=== PATIENT | female | born 1965 | race African-American/Black ===

== ENCOUNTER 2021-11-09 00:13 | Emergency (ER) | payer MEDICARE, OTHER ==
[~2021-11-09] VITALS: Ht 162.6 cm; Wt 65.9 kg
[~2021-11-09 00:13] MED LIST: DOCU-350 PO; DULO30CA89 PO; FOLI-130 PO; GABA-1201 PO; GABA-533 PO; LISI-892 PO; LORA10TA7 PO; MULT-1203 PO; OMEP10 PO
[2021-11-09] MEDS ORDERED: ONDANSETRON HCL 4 MG/2 ML VIAL IM ONE (01:00)
[2021-11-09] MEDS ORDERED: HYDROmorphone 2 MG/ML VIAL IM ONE (01:00)
[2021-11-09 01:39] LABS: BASOPHILS % (AUTO) 0.9 % (0.0-2.0); EOSINOPHILS % (AUTO) 12.5 % (1.0-6.0); HEMATOCRIT 39.1 % (36-46); HEMOGLOBIN 12.9 g/dL (12.0-16.0); LYMPHOCYTES # (AUTO) 2.4 K/uL (1.0-4.8); LYMPHOCYTES % (AUTO) 22.5 % (22.0-44.0); MEAN CORPUSCULAR HEMOGLOBIN 29.6 pg (26.0-34.0); MEAN CORPUSCULAR HGB CONC 32.9 G/dL (31.0-37.0); MEAN CORPUSCULAR VOLUME 90 fL (80-100); MONOCYTES # (AUTO) 0.7 K/uL (0.1-1.0); MONOCYTES % (AUTO) 6.9 % (2.0-9.0); NEUTROPHILS # (AUTO) 6.1 K/uL (1.8-7.7); NEUTROPHILS % (AUTO) 57.2 % (40.0-70.0); PLATELET COUNT (AUTO) 163 K/uL (150-450); RED BLOOD CELL COUNT(AUTO) 4.35 MIL/uL (4.00-5.20); RED CELL DISTRIBUTION WIDTH 14.4 % (11.5-14.5)
[2021-11-09 01:48] LABS: CALCIUM, TOTAL 9.4 mg/dL (8.8-10.5); CREATININE 1.25 mg/dL (0.60-1.30); POTASSIUM 3.9 mmol/L (3.5-5.1)
[2021-11-09 01:54] LABS: ALBUMIN 2.3 g/dL (3.4-5.0); BILIRUBIN,TOTAL 0.1 mg/dL (0.1-1.0); TOTAL PROTEIN, SERUM 6.1 g/dL (6.4-8.2)
[2021-11-09] MEDS ORDERED: HYDR25TA2 PO (02:08)
[2021-11-09] MEDS ORDERED: AMLO-258 PO (02:08)
[2021-11-09] MEDS ORDERED: POTA8TAB71 PO (02:08)
[2021-11-09] MEDS ORDERED: LOSA-381 PO (02:08)
[2021-11-09 02:13] VITALS: BP 168/94
== END 2021-11-09 02:20 | disposition home or self-care (01) ==
LOC: EMS 00:15
DX: R60.0 Localized edema (principal); I10 Essential (primary) hypertension; E78.00 Pure hypercholesterolemia, unspecified; F32.9 Major depressive disorder, single episode, unspecified; Z88.8 Allergy status to other drugs, medicaments and biological substances; Z79.899 Other long term (current) drug therapy
CPT/HCPCS: 36415; 80053; 84484; 85025; 93005; 96372; 99284; J1170; J2405

== ENCOUNTER 2021-11-16 08:28 | Emergency (ER) | payer OTHER ==
[~2021-11-16] VITALS: Ht 162.6 cm; Wt 63.6 kg
[~2021-11-16 08:28] MED LIST changes: +AMLO-258 PO; +HYDR25TA2 PO; +LOSA-381 PO; +POTA8TAB71 PO
[2021-11-16 08:50] LABS: COVID AG,FIA SOURCE NASAL SWAB
[2021-11-16 10:15] VITALS: BP 128/52
[2021-11-16] MEDS ORDERED: AMOX1TAB16 PO (10:15)
== END 2021-11-16 10:23 | disposition home or self-care (01) ==
LOC: EMS 08:42
DX: J01.90 Acute sinusitis, unspecified (principal); I10 Essential (primary) hypertension; E78.00 Pure hypercholesterolemia, unspecified; F32.9 Major depressive disorder, single episode, unspecified; Z88.8 Allergy status to other drugs, medicaments and biological substances; Z79.899 Other long term (current) drug therapy; Z20.822 Contact with and (suspected) exposure to COVID-19
CPT/HCPCS: 99283

== ENCOUNTER 2021-12-05 06:51 | Emergency (ER) | payer OTHER ==
[~2021-12-05] VITALS: Ht 162.6 cm; Wt 63.6 kg
[~2021-12-05 06:51] MED LIST changes: +AMOX1TAB16 PO
[2021-12-05 07:02] LABS: COVID AG,FIA SOURCE NASAL SWAB
[2021-12-05] MEDS ORDERED: ALBUTEROL SULFATE 5 MG/ML 20 ML NEB SOLN [BULK] NEB ONE (08:00)
[2021-12-05 08:20] LABS: BASOPHILS % (AUTO) 0.8 % (0.0-2.0); HEMATOCRIT 41.4 % (36-46); HEMOGLOBIN 13.7 g/dL (12.0-16.0); LYMPHOCYTES # (AUTO) 1.5 K/uL (1.0-4.8); LYMPHOCYTES % (AUTO) 13.6 % (22.0-44.0); MEAN CORPUSCULAR HEMOGLOBIN 29.3 pg (26.0-34.0); MEAN CORPUSCULAR HGB CONC 33.2 G/dL (31.0-37.0); MEAN CORPUSCULAR VOLUME 88 fL (80-100); MONOCYTES # (AUTO) 0.6 K/uL (0.1-1.0); MONOCYTES % (AUTO) 5.3 % (2.0-9.0); NEUTROPHILS # (AUTO) 5.9 K/uL (1.8-7.7); NEUTROPHILS % (AUTO) 51.6 % (40.0-70.0); PLATELET COUNT (AUTO) 227 K/uL (150-450); RED CELL DISTRIBUTION WIDTH 14.1 % (11.5-14.5)
[2021-12-05] MEDS ORDERED: 0.9% SODIUM CHLORIDE 5 ML NEB SOLUTION NEB ONE (08:21)
[2021-12-05 08:22] LABS: EOSINOPHILS % (AUTO) 28.7 % (1.0-6.0)
[2021-12-05 08:27] LABS: CALCIUM, TOTAL 9.3 mg/dL (8.8-10.5); CREATININE 1.59 mg/dL (0.60-1.30); POTASSIUM 3.9 mmol/L (3.5-5.1)
[2021-12-05 08:32] LABS: ALBUMIN 2.6 g/dL (3.4-5.0); BILIRUBIN,TOTAL 0.3 mg/dL (0.1-1.0)
[2021-12-05] MEDS ORDERED: MethylPREDNISolone SOD SUCC 125 MG/2 ML VIAL IVP ONE (09:00)
[2021-12-05] MEDS ORDERED: PRED20TA3 PO (09:54)
[2021-12-05 10:27] VITALS: BP 148/76
== END 2021-12-05 10:28 | disposition home or self-care (01) ==
LOC: EMS 07:01
DX: J44.1 Chronic obstructive pulmonary disease with (acute) exacerbation (principal); F32.9 Major depressive disorder, single episode, unspecified; E78.00 Pure hypercholesterolemia, unspecified; I10 Essential (primary) hypertension; Z20.822 Contact with and (suspected) exposure to COVID-19; Z90.710 Acquired absence of both cervix and uterus; Z88.8 Allergy status to other drugs, medicaments and biological substances
CPT/HCPCS: 36415; 71045; 80053; 83880; 84484; 85025; 87426; 93005; 94640; 96374; 99285; C9803; J2930; J7611

== ENCOUNTER 2022-01-13 15:47 | Emergency (ER) | payer OTHER ==
[~2022-01-13] VITALS: Ht 162.6 cm; Wt 63.6 kg
[~2022-01-13 15:47] MED LIST changes: -DOCU-350 PO; +DOCU250C99 PO; +DULO-114 PO; -DULO30CA89 PO; +PRED20TA3 PO
[2022-01-13 16:34] LABS: COVID AG,FIA SOURCE NASOPHARYNGEAL
[2022-01-13] MEDS ORDERED: ACETAMINOPHEN 500 MG TABLET PO ONE (17:00)
[2022-01-13 17:34] LABS: INFLUENZA TYPE B NEGATIVE FOR TYPE B (NEGATIVE)
[2022-01-13 17:46] LABS: INFLUENZA TYPE A POSITIVE FOR TYPE A (NEGATIVE)
[2022-01-13 18:04] VITALS: BP 163/94
[2022-01-13] MEDS ORDERED: OSEL75 PO (18:04)
[2022-01-13] MEDS ORDERED: DOXY-354 PO (18:04)
== END 2022-01-13 18:25 | disposition home or self-care (01) ==
LOC: EMS 16:11
DX: J10.1 Influenza due to other identified influenza virus with other respiratory manifestations (principal); F32.A Depression, unspecified; E78.00 Pure hypercholesterolemia, unspecified; I10 Essential (primary) hypertension; M35.9 Systemic involvement of connective tissue, unspecified; Z90.710 Acquired absence of both cervix and uterus; Z98.890 Other specified postprocedural states; Z88.8 Allergy status to other drugs, medicaments and biological substances; Z20.822 Contact with and (suspected) exposure to COVID-19
CPT/HCPCS: 87804; 99283

== ENCOUNTER 2022-01-24 11:20 | Emergency (ER) | payer OTHER ==
[~2022-01-24] VITALS: Ht 162.6 cm; Wt 63.6 kg
[~2022-01-24 11:20] MED LIST changes: +DOCU-350 PO; -DOCU250C99 PO; +DOXY-354 PO; +OSEL75 PO
[2022-01-24 13:02] LABS: COVID AG,FIA SOURCE NASOPHARYNGEAL
[2022-01-24 13:06] LABS: BASOPHILS % (AUTO) 1.2 % (0.0-2.0); EOSINOPHILS % (AUTO) 24.2 % (1.0-6.0); HEMATOCRIT 40.9 % (36-46); HEMOGLOBIN 13.2 g/dL (12.0-16.0); LYMPHOCYTES # (AUTO) 2.1 K/uL (1.0-4.8); LYMPHOCYTES % (AUTO) 18.5 % (22.0-44.0); MEAN CORPUSCULAR HEMOGLOBIN 28.7 pg (26.0-34.0); MEAN CORPUSCULAR HGB CONC 32.4 G/dL (31.0-37.0); MEAN CORPUSCULAR VOLUME 89 fL (80-100); MONOCYTES # (AUTO) 0.7 K/uL (0.1-1.0); MONOCYTES % (AUTO) 5.9 % (2.0-9.0); NEUTROPHILS # (AUTO) 5.7 K/uL (1.8-7.7); NEUTROPHILS % (AUTO) 50.2 % (40.0-70.0); PLATELET COUNT (AUTO) 298 K/uL (150-450); RED BLOOD CELL COUNT(AUTO) 4.61 MIL/uL (4.00-5.20)
[2022-01-24] MEDS: SODIUM CHLORIDE 0.9% 1,000 ML IV ONE (13:16)
[2022-01-24] MEDS: OXYMETAZOLINE HCL 0.05% 15 ML NASAL SPRAY NASAL ONE (13:16)
[2022-01-24 13:29] LABS: INFLUENZA TYPE A NEGATIVE FOR TYPE A (NEGATIVE); INFLUENZA TYPE B NEGATIVE FOR TYPE B (NEGATIVE)
[2022-01-24 14:19] LABS: CALCIUM, TOTAL 9.3 mg/dL (8.8-10.5); CREATININE 1.32 mg/dL (0.60-1.30); POTASSIUM 4.6 mmol/L (3.5-5.1)
[2022-01-24 14:20] VITALS: BP 125/80
[2022-01-24 14:22] LABS: ALBUMIN 2.4 g/dL (3.4-5.0); BILIRUBIN,TOTAL 0.3 mg/dL (0.1-1.0); TOTAL PROTEIN, SERUM 6.6 g/dL (6.4-8.2)
[2022-01-24] MEDS ORDERED: FLUT16H NASAL (14:33)
== END 2022-01-24 14:48 | disposition home or self-care (01) ==
LOC: EMS 11:20
DX: J01.90 Acute sinusitis, unspecified (principal); F32.A Depression, unspecified; E78.00 Pure hypercholesterolemia, unspecified; I10 Essential (primary) hypertension; D89.89 Other specified disorders involving the immune mechanism, not elsewhere classified; Z90.710 Acquired absence of both cervix and uterus; Z98.890 Other specified postprocedural states; Z88.8 Allergy status to other drugs, medicaments and biological substances; Z20.822 Contact with and (suspected) exposure to COVID-19
CPT/HCPCS: 36415; 71045; 80053; 85025; 87426; 87804; 96360; 99284; J7030

== ENCOUNTER 2022-02-06 12:10 | Emergency (ER) | payer OTHER ==
[~2022-02-06] VITALS: Ht 162.6 cm; Wt 61.0 kg
[~2022-02-06 12:10] MED LIST changes: +FLUT16H NASAL
[2022-02-06] MEDS ORDERED: PredniSONE 20 MG TABLET PO ONE (15:45)
[2022-02-06] MEDS ORDERED: ALBUTEROL SULFATE 2.5 MG/0.5 ML NEB SOLUTION NEB ONE (15:45)
[2022-02-06] MEDS ORDERED: IPRATROPIUM BROMIDE 0.5 MG/2.5 ML NEB SOLUTION NEB ONE (15:45)
[2022-02-06 17:17] VITALS: BP 177/100
[2022-02-06] MEDS ORDERED: AZIT250T9 PO (17:26)
[2022-02-06] MEDS ORDERED: PRED-554 PO (17:26)
== END 2022-02-06 18:09 | disposition home or self-care (01) ==
LOC: EMS 12:11
DX: J45.909 Unspecified asthma, uncomplicated (principal); I10 Essential (primary) hypertension; K21.9 Gastro-esophageal reflux disease without esophagitis; Z88.8 Allergy status to other drugs, medicaments and biological substances; Z79.899 Other long term (current) drug therapy
CPT/HCPCS: 71046; 94640; 99283; J7512; J7613

== ENCOUNTER 2022-03-04 08:28 | Emergency (ER) | payer OTHER ==
[~2022-03-04] VITALS: Ht 160 cm; Wt 70.0 kg
[~2022-03-04 08:28] MED LIST changes: +AZIT250T9 PO; +HYDR-4870 PO; -HYDR25TA2 PO; +PRED-554 PO
[2022-03-04 08:29] VITALS: BP 115/75
[2022-03-04 08:58] LABS: COVID AG,FIA SOURCE NASOPHARYNGEAL
[2022-03-04] MEDS ORDERED: NIRM1TAB5 ×2 (09:25→11:08)
[2022-03-04 09:49] LABS: INFLUENZA TYPE A NEGATIVE FOR TYPE A (NEGATIVE); INFLUENZA TYPE B NEGATIVE FOR TYPE B (NEGATIVE)
== END 2022-03-04 10:05 | disposition home or self-care (01) ==
LOC: EMS 08:28
DX: U07.1 COVID-19 (principal); K21.9 Gastro-esophageal reflux disease without esophagitis; I10 Essential (primary) hypertension; Z88.9 Allergy status to unspecified drugs, medicaments and biological substances; Z88.8 Allergy status to other drugs, medicaments and biological substances; Z90.49 Acquired absence of other specified parts of digestive tract
CPT/HCPCS: 87804; 99283

== ENCOUNTER 2022-03-14 11:52 | Emergency (ER) | payer OTHER ==
[~2022-03-14] VITALS: Ht 162.6 cm; Wt 59.1 kg
[~2022-03-14 11:52] MED LIST changes: +NIRM1TAB5
[2022-03-14 12:22] LABS: COVID AG,FIA SOURCE NASAL SWAB
[2022-03-14 12:55] LABS: INFLUENZA TYPE A NEGATIVE FOR TYPE A (NEGATIVE); INFLUENZA TYPE B NEGATIVE FOR TYPE B (NEGATIVE)
[2022-03-14 13:55] VITALS: BP 132/88
[2022-03-14] MEDS ORDERED: BENZ-70 PO (15:32)
== END 2022-03-14 15:46 | disposition home or self-care (01) ==
LOC: EMS 11:52
DX: R05.9 Cough, unspecified (principal); I10 Essential (primary) hypertension; K21.9 Gastro-esophageal reflux disease without esophagitis; J44.9 Chronic obstructive pulmonary disease, unspecified; Z88.8 Allergy status to other drugs, medicaments and biological substances; Z79.899 Other long term (current) drug therapy; Z20.822 Contact with and (suspected) exposure to COVID-19
CPT/HCPCS: 71046; 87804; 99284

== ENCOUNTER 2022-03-23 09:05 | Emergency (ER) | payer OTHER ==
[~2022-03-23] VITALS: Ht 162.6 cm; Wt 61.4 kg
[~2022-03-23 09:05] MED LIST changes: +BENZ-70 PO; -HYDR-4870 PO; +HYDR25TA2 PO
[2022-03-23] MEDS ORDERED: ACETAMINOPHEN 500 MG TABLET PO ONE (09:30)
[2022-03-23] MEDS ORDERED: IPRATROPIUM BROMIDE 0.5 MG/2.5 ML NEB SOLUTION NEB ONE (09:30)
[2022-03-23] MEDS ORDERED: PredniSONE 20 MG TABLET PO ONE (09:30)
[2022-03-23] MEDS ORDERED: ALBUTEROL SULFATE 2.5 MG/0.5 ML NEB SOLUTION NEB ONE (09:30)
[2022-03-23] MEDS ORDERED: KETOROLAC TROMETHAMINE 30 MG/ML VIAL IM ONE (09:30)
[2022-03-23 09:38] LABS: BASOPHILS % (AUTO) 0.8 % (0.0-2.0); HEMATOCRIT 39.6 % (36-46); HEMOGLOBIN 13.1 g/dL (12.0-16.0); LYMPHOCYTES # (AUTO) 1.4 K/uL (1.0-4.8); MEAN CORPUSCULAR HEMOGLOBIN 29.3 pg (26.0-34.0); MEAN CORPUSCULAR HGB CONC 33.1 G/dL (31.0-37.0); MEAN CORPUSCULAR VOLUME 89 fL (80-100); MONOCYTES # (AUTO) 0.5 K/uL (0.1-1.0); MONOCYTES % (AUTO) 5.1 % (2.0-9.0); NEUTROPHILS # (AUTO) 4.7 K/uL (1.8-7.7); NEUTROPHILS % (AUTO) 50.8 % (40.0-70.0); PLATELET COUNT (AUTO) 219 K/uL (150-450); RED BLOOD CELL COUNT(AUTO) 4.46 MIL/uL (4.00-5.20); RED CELL DISTRIBUTION WIDTH 14.2 % (11.5-14.5)
[2022-03-23 09:43] LABS: EOSINOPHILS % (AUTO) 28.3 % (1.0-6.0)
[2022-03-23 09:52] LABS: COVID AG,FIA SOURCE NASOPHARYNGEAL
[2022-03-23 09:52] LABS: CALCIUM, TOTAL 9.6 mg/dL (8.8-10.5); CREATININE 1.18 mg/dL (0.60-1.30); POTASSIUM 4.3 mmol/L (3.5-5.1)
[2022-03-23 10:00] LABS: ALBUMIN 2.9 g/dL (3.4-5.0); BILIRUBIN,TOTAL 0.3 mg/dL (0.1-1.0); TOTAL PROTEIN, SERUM 6.6 g/dL (6.4-8.2)
[2022-03-23 10:20] VITALS: BP 146/101
[2022-03-23 10:23] LABS: INFLUENZA TYPE A NEGATIVE FOR TYPE A (NEGATIVE); INFLUENZA TYPE B NEGATIVE FOR TYPE B (NEGATIVE)
[2022-03-23] MEDS ORDERED: PRED-554 PO (10:49)
== END 2022-03-23 11:07 | disposition home or self-care (01) ==
LOC: EMS 09:07
DX: R05.9 Cough, unspecified (principal); Z20.822 Contact with and (suspected) exposure to COVID-19; K21.9 Gastro-esophageal reflux disease without esophagitis; I10 Essential (primary) hypertension; J44.9 Chronic obstructive pulmonary disease, unspecified; J45.901 Unspecified asthma with (acute) exacerbation; M79.661 Pain in right lower leg; Z88.9 Allergy status to unspecified drugs, medicaments and biological substances; Z88.8 Allergy status to other drugs, medicaments and biological substances
CPT/HCPCS: 99284; 71045; 87426; 80053; 83880; 84484; 84702; 85025; 87804; 36415; 94640; 96372; J1885; J7512; J7613

== ENCOUNTER 2022-05-17 07:42 | Emergency (ER) | payer OTHER ==
[~2022-05-17] VITALS: Ht 162.6 cm; Wt 59.1 kg
[2022-05-17] MEDS ORDERED: HYDR10TA31 PO (07:50)
[2022-05-17] MEDS ORDERED: NIFE10CA50 PO (07:50)
[2022-05-17] MEDS ORDERED: BUDE10.22 IH (07:51)
[2022-05-17] MEDS ORDERED: ALBU8HFA IH (07:51)
[2022-05-17 08:22] LABS: COVID AG,FIA SOURCE NASAL SWAB
[2022-05-17 08:26] LABS: HEMATOCRIT 38.8 % (36-46); HEMOGLOBIN 12.9 g/dL (12.0-16.0); MEAN CORPUSCULAR HEMOGLOBIN 29.8 pg (26.0-34.0); MEAN CORPUSCULAR HGB CONC 33.3 G/dL (31.0-37.0); MEAN CORPUSCULAR VOLUME 89 fL (80-100); PLATELET COUNT (AUTO) 281 K/uL (150-450); RED BLOOD CELL COUNT(AUTO) 4.34 MIL/uL (4.00-5.20); RED CELL DISTRIBUTION WIDTH 15.2 % (11.5-14.5)
[2022-05-17] MEDS ORDERED: ACETAMINOPHEN 500 MG TABLET PO ONE (08:30)
[2022-05-17] MEDS ORDERED: PredniSONE 20 MG TABLET PO ONE (08:30)
[2022-05-17] MEDS ORDERED: GuaiFENesin/D-METHORPHAN [SUGAR-FREE] 200-20MG/10 ML SYRUP UDCUP PO ONE (08:30)
[2022-05-17 08:37] LABS: CALCIUM, TOTAL 9.2 mg/dL (8.8-10.5); CREATININE 1.48 mg/dL (0.60-1.30); POTASSIUM 3.7 mmol/L (3.5-5.1)
[2022-05-17 08:42] LABS: INFLUENZA TYPE A NEGATIVE FOR TYPE A (NEGATIVE); INFLUENZA TYPE B NEGATIVE FOR TYPE B (NEGATIVE)
[2022-05-17 08:43] LABS: ALBUMIN 2.7 g/dL (3.4-5.0); BILIRUBIN,TOTAL 0.2 mg/dL (0.1-1.0); TOTAL PROTEIN, SERUM 6.5 g/dL (6.4-8.2)
[2022-05-17 08:56] LABS: BAND NEUTROPHILS % (MANUAL) 2 % (0-5); BASOPHILS % (MANUAL) 1 % (0-2); EOSINOPHILS % (MANUAL) 31 % (1-6); LYMPHOCYTES % (MANUAL) 11 % (22-44); MONOCYTES % (MANUAL) 2 % (2-9); SEGMENTED NEUTROPHILS % 53 % (40-70)
[2022-05-17] MEDS ORDERED: RIZA10TA98 PO (10:12)
[2022-05-17] MEDS ORDERED: DIPH25TA45 PO (10:12)
[2022-05-17] MEDS ORDERED: POTA8TAB71 PO (10:12)
[2022-05-17] MEDS ORDERED: PRED-554 PO (10:12)
[2022-05-17] MEDS ORDERED: ACET-66 PO (10:12)
[2022-05-17] MEDS ORDERED: AmLODIPine BESYLATE 5 MG TABLET PO ONE (10:45)
[2022-05-17] MEDS ORDERED: DiphenhydrAMINE HCL 25 MG/10 ML SOLUTION UDCUP PO ONE (10:45)
[2022-05-17 11:24] VITALS: BP 186/99
== END 2022-05-17 12:07 | disposition home or self-care (01) ==
LOC: EMS 07:44
DX: G43.909 Migraine, unspecified, not intractable, without status migrainosus (principal); J06.9 Acute upper respiratory infection, unspecified; J44.1 Chronic obstructive pulmonary disease with (acute) exacerbation; I10 Essential (primary) hypertension; Z90.49 Acquired absence of other specified parts of digestive tract; Z20.822 Contact with and (suspected) exposure to COVID-19
CPT/HCPCS: 99284; 87426; 80053; 84484; 85025; 87804; 36415; J7512

== ENCOUNTER 2022-06-01 16:07 | Emergency (ER) | payer OTHER ==
[~2022-06-01] VITALS: Ht 160 cm; Wt 63.6 kg
[~2022-06-01 16:07] MED LIST changes: +ACET-66 PO; +ALBU8HFA IH; -AMLO-258 PO; -AMOX1TAB16 PO; -AZIT250T9 PO; -BENZ-70 PO; +BUDE10.22 IH; +DIPH25TA45 PO; -DOCU-350 PO; -DOXY-354 PO; -DULO-114 PO; -FOLI-130 PO; -GABA-1201 PO; -GABA-533 PO; +HYDR10TA31 PO; -LISI-892 PO; -MULT-1203 PO; +NIFE10CA50 PO; -NIRM1TAB5; -OMEP10 PO; -OSEL75 PO; -PRED20TA3 PO; +RIZA10TA98 PO
[2022-06-01] MEDS ORDERED: IBUP-2070 PO (18:13)
[2022-06-01] MEDS ORDERED: CYCL-448 PO (18:13)
[2022-06-01] MEDS ORDERED: CYCLOBENZAPRINE HCL 10 MG TABLET PO ONE (18:15)
[2022-06-01] MEDS ORDERED: KETOROLAC TROMETHAMINE 60 MG/2 ML VIAL IM ONE (18:15)
[2022-06-01 18:25] VITALS: BP 139/85
== END 2022-06-01 18:54 | disposition home or self-care (01) ==
LOC: EMS 16:07
DX: M54.41 Lumbago with sciatica, right side (principal); J45.909 Unspecified asthma, uncomplicated; J44.9 Chronic obstructive pulmonary disease, unspecified; I10 Essential (primary) hypertension; Z90.49 Acquired absence of other specified parts of digestive tract; Z98.890 Other specified postprocedural states; Z88.8 Allergy status to other drugs, medicaments and biological substances
CPT/HCPCS: 99283; 96372; J1885

== ENCOUNTER 2022-06-17 15:26 | Emergency (ER) | payer OTHER ==
[~2022-06-17] VITALS: Ht 162.6 cm; Wt 63.2 kg
[~2022-06-17 15:26] MED LIST changes: +CYCL-448 PO; -DIPH25TA45 PO; +IBUP-2070 PO
[2022-06-17 15:54] VITALS: BP 142/88
[2022-06-18] MEDS ORDERED: NIFE-79 PO (11:50)
[2022-06-18] MEDS ORDERED: CETI10TA58 PO (11:51)
[2022-06-18] MEDS ORDERED: TRAM50TA2 PO (13:34)
== END 2022-06-17 16:37 | disposition left against medical advice (07) ==
LOC: EMS 15:28
DX: M79.604 Pain in right leg (principal); Z53.21 Procedure and treatment not carried out due to patient leaving prior to being seen by health care provider

== ENCOUNTER 2022-06-18 09:29 | Emergency (ER) | payer OTHER ==
[~2022-06-18] VITALS: Ht 160 cm; Wt 63.6 kg
[2022-06-18 09:38] VITALS: BP 128/82
[2022-06-18] MEDS ORDERED: ACETAMINOPHEN 325 MG TABLET PO ONE (10:15)
[2022-06-18] MEDS ORDERED: NIFE-79 PO (11:50)
[2022-06-18] MEDS ORDERED: CETI10TA58 PO (11:51)
[2022-06-18] MEDS ORDERED: LIDOCAINE 5% TRANSDERMAL PATCH TD ONE (12:30)
[2022-06-18] MEDS ORDERED: KETOROLAC TROMETHAMINE 30 MG/ML VIAL IM ONE (12:30)
[2022-06-18] MEDS ORDERED: TRAM50TA2 PO (13:34)
== END 2022-06-18 13:58 | disposition home or self-care (01) ==
LOC: EMS 09:36
DX: G89.29 Other chronic pain (principal); M54.50 Low back pain, unspecified; J44.9 Chronic obstructive pulmonary disease, unspecified; I10 Essential (primary) hypertension; Z90.49 Acquired absence of other specified parts of digestive tract; Z98.890 Other specified postprocedural states; Z88.8 Allergy status to other drugs, medicaments and biological substances
CPT/HCPCS: 99283; 96372; J1885

== ENCOUNTER 2022-07-02 13:21 | Emergency (ER) | payer OTHER ==
[~2022-07-02] VITALS: Ht 162.6 cm; Wt 59.1 kg
[~2022-07-02 13:21] MED LIST changes: +CETI10TA58 PO; -LORA10TA7 PO; +NIFE-79 PO; -NIFE10CA50 PO; -PRED-554 PO; +TRAM50TA2 PO
[2022-07-02] MEDS ORDERED: PredniSONE 20 MG TABLET PO ONE ×2 (16:30→18:00)
[2022-07-02] MEDS ORDERED: ALBUTEROL SULFATE 2.5 MG/0.5 ML NEB SOLUTION NEB ONE (16:30)
[2022-07-02] MEDS ORDERED: IPRATROPIUM BROMIDE 0.5 MG/2.5 ML NEB SOLUTION NEB ONE (16:30)
[2022-07-02 16:54] LABS: HEMATOCRIT 37.4 % (36-46); MEAN CORPUSCULAR HEMOGLOBIN 29.6 pg (26.0-34.0); MEAN CORPUSCULAR HGB CONC 32.2 G/dL (31.0-37.0); MEAN CORPUSCULAR VOLUME 92 fL (80-100); PLATELET COUNT (AUTO) 231 K/uL (150-450); RED BLOOD CELL COUNT(AUTO) 4.07 MIL/uL (4.00-5.20); RED CELL DISTRIBUTION WIDTH 15.2 % (11.5-14.5)
[2022-07-02 17:25] LABS: BAND NEUTROPHILS % (MANUAL) 0 % (0-5)
[2022-07-02 17:28] LABS: EOSINOPHILS % (MANUAL) 24 % (1-6); LYMPHOCYTES % (MANUAL) 20 % (22-44); MONOCYTES % (MANUAL) 2 % (2-9); SEGMENTED NEUTROPHILS % 54 % (40-70)
[2022-07-02 17:31] LABS: CALCIUM, TOTAL 9.6 mg/dL (8.8-10.5); CREATININE 2.26 mg/dL (0.60-1.30); POTASSIUM 4.8 mmol/L (3.5-5.1)
[2022-07-02 17:38] LABS: ALBUMIN 2.5 g/dL (3.4-5.0); BILIRUBIN,TOTAL 0.4 mg/dL (0.1-1.0)
[2022-07-02 17:49] LABS: TOTAL PROTEIN, SERUM 7.2 g/dL (6.4-8.2)
[2022-07-02] MEDS ORDERED: CefTRIAXone 1 GM/DEXTROSE 50 ML IV ONE (18:00)
[2022-07-02] MEDS ORDERED: AZITHROMYCIN 500 MG TABLET PO ONE (18:00)
[2022-07-02] MEDS ORDERED: CefTRIAXone SODIUM 1 GM/VIAL IM ONE ×2 (18:15→18:30)
[2022-07-02] MEDS ORDERED: LIDOCAINE/PF 1% 2 ML VIAL IM ONE ×2 (18:15→18:30)
[2022-07-02] MEDS ORDERED: ACYC-138 PO (18:56)
[2022-07-02] MEDS ORDERED: AZIT250T9 PO (18:56)
[2022-07-02] MEDS ORDERED: PRED-554 PO (18:56)
[2022-07-02 18:58] VITALS: BP 121/78
== END 2022-07-02 19:01 | disposition home or self-care (01) ==
LOC: EMS 13:24
DX: J18.9 Pneumonia, unspecified organism (principal); B00.9 Herpesviral infection, unspecified; N76.0 Acute vaginitis; I10 Essential (primary) hypertension; J44.9 Chronic obstructive pulmonary disease, unspecified; K21.9 Gastro-esophageal reflux disease without esophagitis; R06.02 Shortness of breath; Z88.5 Allergy status to narcotic agent
CPT/HCPCS: 99284; 71046; 80053; 85025; 36415; 94640; 96372; J0696; J3490; J7512; Q9967; J7613

== ENCOUNTER 2022-08-22 23:27 | Emergency (ER) | payer MEDICARE, OTHER ==
[~2022-08-22] VITALS: Ht 162.6 cm; Wt 61.3 kg
[~2022-08-22 23:27] MED LIST changes: +ACYC-138 PO; -FLUT16H NASAL; +FLUT16SP NASAL; +PRED-554 PO
[2022-08-23 01:55] VITALS: BP 145/71
== END 2022-08-23 01:56 | disposition home or self-care (01) ==
LOC: EMS 23:32
DX: S00.12XA Contusion of left eyelid and periocular area, initial encounter (principal); J45.909 Unspecified asthma, uncomplicated; J44.9 Chronic obstructive pulmonary disease, unspecified; B00.9 Herpesviral infection, unspecified; I12.9 Hypertensive chronic kidney disease with stage 1 through stage 4 chronic kidney disease, or unspecified chronic kidney disease; M79.89 Other specified soft tissue disorders; N18.9 Chronic kidney disease, unspecified; Z90.49 Acquired absence of other specified parts of digestive tract; Z98.890 Other specified postprocedural states; Z88.8 Allergy status to other drugs, medicaments and biological substances; W18.39XA Other fall on same level, initial encounter; Y93.89 Activity, other specified; Y92.89 Other specified places as the place of occurrence of the external cause; Y99.8 Other external cause status
CPT/HCPCS: 70450; 70486; 99284

== ENCOUNTER 2022-09-12 09:38 | Emergency (ER) | payer MEDICARE, MEDICAID ==
[~2022-09-12] VITALS: Ht 160 cm; Wt 56.8 kg
[~2022-09-12 09:38] MED LIST changes: +IBUP-1492 PO; -IBUP-2070 PO
[2022-09-12 10:02] LABS: COVID AG,FIA SOURCE NASAL SWAB
[2022-09-12 10:30] LABS: INFLUENZA TYPE A NEGATIVE FOR TYPE A (NEGATIVE); INFLUENZA TYPE B NEGATIVE FOR TYPE B (NEGATIVE)
[2022-09-12 11:50] LABS: APPEARANCE,URINE CLEAR (CLEAR); BILIRUBIN,URINE NEGATIVE (NEGATIVE); GLUCOSE, URINE (UA) NEGATIVE (NEGATIVE); KETONES,URINE NEGATIVE (NEGATIVE); LEUKOCYTE ESTERASE ,URINE NEGATIVE (NEGATIVE); NITRATE,URINE NEGATIVE (NEGATIVE); OCCULT BLOOD,URINE NEGATIVE (NEGATIVE); PH,URINE 6.5 (5.0-8.0); PROTEIN,URINE 100-200,SEE CONFIRM mg/dL (NEGATIVE); UROBILINOGEN,URINE <=1.0 mg/dL (<=1.0)
[2022-09-12 11:59] LABS: BACTERIA,URINE None Seen /HPF (None Seen); RBC,URINE None Seen /HPF (0-2); SULFOSALICYLIC ACID,URINE 2+ (Negative); WBC,URINE None Seen /HPF (0-5)
[2022-09-12] MEDS ORDERED: PRED-554 PO (12:47)
[2022-09-12] MEDS ORDERED: AZIT250T9 PO (12:48)
[2022-09-12 13:20] VITALS: BP 146/81
== END 2022-09-12 13:48 | disposition home or self-care (01) ==
LOC: EMS 09:45
DX: J45.909 Unspecified asthma, uncomplicated (principal); J44.9 Chronic obstructive pulmonary disease, unspecified; I12.9 Hypertensive chronic kidney disease with stage 1 through stage 4 chronic kidney disease, or unspecified chronic kidney disease; N18.9 Chronic kidney disease, unspecified; Z90.49 Acquired absence of other specified parts of digestive tract; Z98.890 Other specified postprocedural states; Z88.8 Allergy status to other drugs, medicaments and biological substances; Z20.822 Contact with and (suspected) exposure to COVID-19
CPT/HCPCS: 71045; 81001; 81002; 87804; 99284

== ENCOUNTER 2022-10-06 18:02 | Emergency (ER) | payer MEDICARE, OTHER ==
[~2022-10-06] VITALS: Ht 162.6 cm; Wt 59.1 kg
[2022-10-06] MEDS ORDERED: ONDANSETRON HCL 4 MG TABLET PO ONE (19:45)
[2022-10-06] MEDS ORDERED: DiphenhydrAMINE HCL 25 MG CAPSULE PO ONE (19:45)
[2022-10-06] MEDS ORDERED: ACETAMINOPHEN 500 MG TABLET PO ONE (19:45)
[2022-10-06 20:11] LABS: BASOPHILS % (AUTO) 0.5 % (0.0-2.0); HEMATOCRIT 38.9 % (36-46); HEMOGLOBIN 12.7 g/dL (12.0-16.0); LYMPHOCYTES # (AUTO) 2.3 K/uL (1.0-4.8); LYMPHOCYTES % (AUTO) 21.1 % (22.0-44.0); MEAN CORPUSCULAR HEMOGLOBIN 30.4 pg (26.0-34.0); MEAN CORPUSCULAR HGB CONC 32.5 G/dL (31.0-37.0); MEAN CORPUSCULAR VOLUME 94 fL (80-100); MONOCYTES # (AUTO) 0.7 K/uL (0.1-1.0); MONOCYTES % (AUTO) 6.7 % (2.0-9.0); NEUTROPHILS # (AUTO) 5.7 K/uL (1.8-7.7); NEUTROPHILS % (AUTO) 51.7 % (40.0-70.0); PLATELET COUNT (AUTO) 269 K/uL (150-450); RED BLOOD CELL COUNT(AUTO) 4.16 MIL/uL (4.00-5.20); RED CELL DISTRIBUTION WIDTH 15.4 % (11.5-14.5)
[2022-10-06 20:24] LABS: CALCIUM, TOTAL 9.1 mg/dL (8.8-10.5); CREATININE 1.24 mg/dL (0.60-1.30); POTASSIUM 3.7 mmol/L (3.5-5.1)
[2022-10-06 20:42] LABS: COVID AG,FIA SOURCE NASOPHARYNGEAL
[2022-10-06 20:49] LABS: ALBUMIN 2.8 g/dL (3.4-5.0); BILIRUBIN,TOTAL 0.3 mg/dL (0.1-1.0); TOTAL PROTEIN, SERUM 6.8 g/dL (6.4-8.2)
[2022-10-06 21:05] LABS: INFLUENZA TYPE A NEGATIVE FOR TYPE A (NEGATIVE); INFLUENZA TYPE B NEGATIVE FOR TYPE B (NEGATIVE)
[2022-10-06] MEDS ORDERED: OxyCODONE HCL 5 MG IR TABLET PO ONE (21:15)
[2022-10-06 22:13] VITALS: BP 176/92
[2022-10-06] MEDS ORDERED: AMOX1TAB16 PO (22:28)
[2022-10-06] MEDS ORDERED: AMOX TR/POT CLAV 875 MG/125 MG TABLET PO ONE (22:30)
== END 2022-10-06 23:05 | disposition home or self-care (01) ==
LOC: EMS 18:29
DX: J32.9 Chronic sinusitis, unspecified (principal); R51.9 Headache, unspecified; J44.9 Chronic obstructive pulmonary disease, unspecified; Z90.49 Acquired absence of other specified parts of digestive tract; Z98.890 Other specified postprocedural states; Z20.822 Contact with and (suspected) exposure to COVID-19; Z88.8 Allergy status to other drugs, medicaments and biological substances
CPT/HCPCS: 99285; 70450; 71045; 87426; 80053; 82550; 83880; 84484; 85025; 87804; 93005; Q0162

== ENCOUNTER 2022-10-19 08:09 | Emergency (ER) | payer OTHER ==
[~2022-10-19] VITALS: Ht 160 cm; Wt 56.8 kg
[~2022-10-19 08:09] MED LIST changes: -ACYC-138 PO; +AMOX1TAB16 PO; -CYCL-448 PO; -IBUP-1492 PO; -TRAM50TA2 PO
[2022-10-19 08:33] LABS: COVID AG,FIA SOURCE NASAL SWAB
[2022-10-19 09:20] LABS: INFLUENZA TYPE A NEGATIVE FOR TYPE A (NEGATIVE); INFLUENZA TYPE B NEGATIVE FOR TYPE B (NEGATIVE)
[2022-10-19] MEDS ORDERED: BENZ-227 PO (09:22)
[2022-10-19] MEDS ORDERED: CETI-193 PO (09:22)
[2022-10-19] MEDS ORDERED: PRED-554 PO (09:22)
[2022-10-19] MEDS ORDERED: FLUT16SP NASAL (09:22)
[2022-10-19] MEDS ORDERED: ACETAMINOPHEN 325 MG TABLET PO ONE (09:30)
[2022-10-19] MEDS ORDERED: PredniSONE 20 MG TABLET PO ONE (09:30)
[2022-10-19 10:15] VITALS: BP 138/84
== END 2022-10-19 10:05 | disposition home or self-care (01) ==
LOC: EMS 08:27
DX: R09.81 Nasal congestion (principal); J45.909 Unspecified asthma, uncomplicated; J44.9 Chronic obstructive pulmonary disease, unspecified; I12.9 Hypertensive chronic kidney disease with stage 1 through stage 4 chronic kidney disease, or unspecified chronic kidney disease; N18.9 Chronic kidney disease, unspecified; B00.9 Herpesviral infection, unspecified; Z88.8 Allergy status to other drugs, medicaments and biological substances; Z20.822 Contact with and (suspected) exposure to COVID-19; Z90.49 Acquired absence of other specified parts of digestive tract
CPT/HCPCS: 99284; 71046; 87426; 87804; J7512

== ENCOUNTER 2022-11-06 14:08 | Emergency (ER) | payer OTHER ==
[~2022-11-06] VITALS: Ht 160 cm; Wt 59.1 kg
[~2022-11-06 14:08] MED LIST changes: -ACET-66 PO; -AMOX1TAB16 PO; +BENZ-227 PO; +CETI-193 PO; -CETI10TA58 PO
[2022-11-06 14:15] VITALS: BP 106/73
[2022-11-06] MEDS ORDERED: AUD NEB ×2 (14:57→15:08)
[2022-11-06] MEDS ORDERED: ALBU8HFA IH ×2 (14:57→15:08)
[2022-11-06] MEDS ORDERED: BUDE10.22 IH ×2 (14:57→15:08)
[2022-11-06] MEDS ORDERED: POTA8TAB71 PO ×2 (14:57→15:08)
[2022-11-06] MEDS ORDERED: FLUT16SP NASAL ×2 (14:57→15:08)
== END 2022-11-06 15:16 | disposition home or self-care (01) ==
LOC: EMS 14:15
DX: J45.901 Unspecified asthma with (acute) exacerbation (principal); J44.9 Chronic obstructive pulmonary disease, unspecified; I10 Essential (primary) hypertension; B00.9 Herpesviral infection, unspecified; Z90.49 Acquired absence of other specified parts of digestive tract; Z98.890 Other specified postprocedural states
CPT/HCPCS: 99283; Z7502

== ENCOUNTER 2022-11-10 08:28 | Emergency (ER) | payer OTHER ==
[~2022-11-10] VITALS: Ht 160 cm; Wt 59.0 kg
[~2022-11-10 08:28] MED LIST changes: +AUD NEB; -BENZ-227 PO; -PRED-554 PO
[2022-11-10] MEDS ORDERED: GuaiFENesin/D-METHORPHAN [SUGAR-FREE] 200-20MG/10 ML SYRUP UDCUP PO ONE (12:15)
[2022-11-10] MEDS ORDERED: ALBUTEROL SULFATE 2.5 MG/0.5 ML NEB SOLUTION NEB ONE (12:15)
[2022-11-10] MEDS ORDERED: MethylPREDNISolone SOD SUCC 125 MG/2 ML VIAL IM ONE (12:15)
[2022-11-10] MEDS ORDERED: IPRATROPIUM BROMIDE 0.5 MG/2.5 ML NEB SOLUTION NEB ONE (12:15)
[2022-11-10 12:26] VITALS: BP 151/121
[2022-11-10 12:47] LABS: BASOPHILS % (AUTO) 0.3 % (0.0-2.0); EOSINOPHILS % (AUTO) 22.4 % (1.0-6.0); HEMATOCRIT 36.1 % (36-46); HEMOGLOBIN 11.8 g/dL (12.0-16.0); LYMPHOCYTES # (AUTO) 1.4 K/uL (1.0-4.8); LYMPHOCYTES % (AUTO) 14.2 % (22.0-44.0); MEAN CORPUSCULAR HEMOGLOBIN 30.3 pg (26.0-34.0); MEAN CORPUSCULAR HGB CONC 32.5 G/dL (31.0-37.0); MEAN CORPUSCULAR VOLUME 93 fL (80-100); MONOCYTES # (AUTO) 0.6 K/uL (0.1-1.0); MONOCYTES % (AUTO) 6.2 % (2.0-9.0); NEUTROPHILS # (AUTO) 5.8 K/uL (1.8-7.7); NEUTROPHILS % (AUTO) 56.9 % (40.0-70.0); PLATELET COUNT (AUTO) 261 K/uL (150-450); RED BLOOD CELL COUNT(AUTO) 3.88 MIL/uL (4.00-5.20); RED CELL DISTRIBUTION WIDTH 14.3 % (11.5-14.5)
[2022-11-10 13:08] LABS: CALCIUM, TOTAL 9.8 mg/dL (8.8-10.5); CREATININE 1.43 mg/dL (0.60-1.30); POTASSIUM 4.7 mmol/L (3.5-5.1)
[2022-11-10 13:12] LABS: ALBUMIN 2.2 g/dL (3.4-5.0)
[2022-11-10 13:26] LABS: BILIRUBIN,TOTAL 0.3 mg/dL (0.1-1.0); TOTAL PROTEIN, SERUM 6.5 g/dL (6.4-8.2)
[2022-11-10] MEDS ORDERED: GUAIFDM PO (14:02)
[2022-11-10] MEDS ORDERED: PRED-554 PO (14:02)
== END 2022-11-10 14:22 | disposition home or self-care (01) ==
LOC: EMS 08:29
DX: R06.03 Acute respiratory distress (principal); J44.1 Chronic obstructive pulmonary disease with (acute) exacerbation; J45.909 Unspecified asthma, uncomplicated; I10 Essential (primary) hypertension; B00.9 Herpesviral infection, unspecified; Z90.49 Acquired absence of other specified parts of digestive tract; Z98.890 Other specified postprocedural states; Z88.8 Allergy status to other drugs, medicaments and biological substances
CPT/HCPCS: 99285; 71045; 80053; 84484; 85025; 36415; 94640; 93005; 96372; J2930; J7613

== ENCOUNTER 2022-12-10 15:46 | Emergency (ER) | payer MEDICARE, OTHER ==
[~2022-12-10] VITALS: Ht 162.6 cm; Wt 59.1 kg
[~2022-12-10 15:46] MED LIST changes: +ALBU18HF12 IH; -ALBU8HFA IH; +GUAIFDM PO; +PRED-554 PO
[2022-12-10] MEDS ORDERED: IPRATROPIUM BROMIDE 0.5 MG/2.5 ML NEB SOLUTION NEB ONE (18:00)
[2022-12-10] MEDS ORDERED: ALBUTEROL SULFATE 2.5 MG/0.5 ML NEB SOLUTION NEB ONE (18:00)
[2022-12-10] MEDS ORDERED: PredniSONE 20 MG TABLET PO ONE (18:15)
[2022-12-10 18:41] LABS: HEMOGLOBIN 12.4 g/dL (12.0-16.0); NEUTROPHILS # (AUTO) 10.1 K/uL (1.8-7.7)
[2022-12-10 18:44] LABS: BASOPHILS % (AUTO) 0.6 % (0.0-2.0); EOSINOPHILS % (AUTO) 11.1 % (1.0-6.0); HEMATOCRIT 37.5 % (36-46); LYMPHOCYTES # (AUTO) 2.2 K/uL (1.0-4.8); LYMPHOCYTES % (AUTO) 14.8 % (22.0-44.0); MEAN CORPUSCULAR HEMOGLOBIN 30.5 pg (26.0-34.0); MEAN CORPUSCULAR HGB CONC 33.2 G/dL (31.0-37.0); MEAN CORPUSCULAR VOLUME 92 fL (80-100); MONOCYTES # (AUTO) 0.8 K/uL (0.1-1.0); MONOCYTES % (AUTO) 5.1 % (2.0-9.0); NEUTROPHILS % (AUTO) 68.4 % (40.0-70.0); PLATELET COUNT (AUTO) 234 K/uL (150-450); RED BLOOD CELL COUNT(AUTO) 4.08 MIL/uL (4.00-5.20); RED CELL DISTRIBUTION WIDTH 14.8 % (11.5-14.5)
[2022-12-10 18:50] LABS: CALCIUM, TOTAL 9.4 mg/dL (8.8-10.5); CREATININE 1.46 mg/dL (0.60-1.30); POTASSIUM 4.2 mmol/L (3.5-5.1)
[2022-12-10 19:15] LABS: ALBUMIN 2.9 g/dL (3.4-5.0); BILIRUBIN,TOTAL 0.3 mg/dL (0.1-1.0); TOTAL PROTEIN, SERUM 6.8 g/dL (6.4-8.2)
[2022-12-10 19:20] VITALS: BP 126/97
[2022-12-10 19:41] LABS: COVID AG,FIA SOURCE NASAL SWAB
[2022-12-10 20:05] LABS: INFLUENZA TYPE A NEGATIVE FOR TYPE A (NEGATIVE); INFLUENZA TYPE B NEGATIVE FOR TYPE B (NEGATIVE)
[2022-12-10] MEDS ORDERED: AUD NEB (21:42)
[2022-12-10] MEDS ORDERED: PRED-554 PO (21:42)
[2022-12-10] MEDS ORDERED: AZIT250T9 PO (21:43)
[2022-12-12] MEDS ORDERED: PRED-554 PO (09:37)
[2022-12-12] MEDS ORDERED: AUD NEB (09:37)
[2022-12-12] MEDS ORDERED: AZIT250T9 PO (09:37)
== END 2022-12-10 23:35 | disposition home or self-care (01) ==
LOC: EMS 15:48
DX: J45.909 Unspecified asthma, uncomplicated (principal); J44.9 Chronic obstructive pulmonary disease, unspecified; K21.9 Gastro-esophageal reflux disease without esophagitis; I10 Essential (primary) hypertension; Z90.49 Acquired absence of other specified parts of digestive tract; Z88.8 Allergy status to other drugs, medicaments and biological substances; Z20.822 Contact with and (suspected) exposure to COVID-19
CPT/HCPCS: 99285; 71045; 87426; 80053; 82550; 83880; 84484; 85025; 85379; 87040; 87804; 94640; 93005; J7512; J7613

== ENCOUNTER 2023-01-11 09:49 | Emergency (ER) | payer MEDICARE, MEDICAID ==
[~2023-01-11] VITALS: Ht 162.6 cm; Wt 59.1 kg
[~2023-01-11 09:49] MED LIST changes: +AZIT250T9 PO; +HYDR-4870 PO; -HYDR25TA2 PO
[2023-01-11] MEDS ORDERED: IPRATROPIUM BROMIDE 0.5 MG/2.5 ML NEB SOLUTION NEB ONE (12:15)
[2023-01-11] MEDS ORDERED: ALBUTEROL SULFATE 2.5 MG/0.5 ML NEB SOLUTION NEB ONE (12:15)
[2023-01-11] MEDS ORDERED: PredniSONE 20 MG TABLET PO ONE (12:15)
[2023-01-11 12:31] LABS: COVID AG,FIA SOURCE NASOPHARYNGEAL
[2023-01-11 12:53] LABS: RAPID GROUP A STREP NEGATIVE (NEGATIVE)
[2023-01-11 13:00] LABS: INFLUENZA TYPE A NEGATIVE FOR TYPE A (NEGATIVE); INFLUENZA TYPE B NEGATIVE FOR TYPE B (NEGATIVE)
[2023-01-11] MEDS ORDERED: PRED-554 PO (13:44)
[2023-01-11] MEDS ORDERED: ALBUTEROL SULFATE HFA 90 MCG/PUFF 8 GM INHALER IH ONE (13:45)
[2023-01-11 14:19] VITALS: BP 141/84
== END 2023-01-11 14:23 | disposition home or self-care (01) ==
LOC: EMS 10:08
DX: J44.1 Chronic obstructive pulmonary disease with (acute) exacerbation (principal); K21.9 Gastro-esophageal reflux disease without esophagitis; I10 Essential (primary) hypertension; Z20.822 Contact with and (suspected) exposure to COVID-19; Z90.710 Acquired absence of both cervix and uterus; Z88.8 Allergy status to other drugs, medicaments and biological substances
CPT/HCPCS: 99285; 71046; 87426; 87430; 87804; 94640; J7512; J3535; J7613

== ENCOUNTER 2023-01-14 11:21 | Emergency (ER) | payer MEDICARE, MEDICAID ==
[~2023-01-14] VITALS: Ht 160 cm; Wt 59.1 kg
[~2023-01-14 11:21] MED LIST changes: -AZIT250T9 PO; -FLUT16SP NASAL; -GUAIFDM PO; -POTA8TAB71 PO; -RIZA10TA98 PO
[2023-01-14 11:30] VITALS: BP 166/96
[2023-01-14] MEDS ORDERED: IPRA3AMP24 NEB (12:18)
[2023-01-14] MEDS ORDERED: AZIT250T9 PO (12:18)
== END 2023-01-14 12:32 | disposition home or self-care (01) ==
LOC: EMS 11:21
DX: J44.1 Chronic obstructive pulmonary disease with (acute) exacerbation (principal); J45.909 Unspecified asthma, uncomplicated; I10 Essential (primary) hypertension; Z90.49 Acquired absence of other specified parts of digestive tract; Z90.710 Acquired absence of both cervix and uterus; Z98.890 Other specified postprocedural states; Z88.8 Allergy status to other drugs, medicaments and biological substances
CPT/HCPCS: 99283; Z7502

== ENCOUNTER 2023-02-09 14:30 | Emergency (ER) | payer MEDICARE, MEDICAID ==
[~2023-02-09] VITALS: Ht 160 cm; Wt 61.4 kg
[~2023-02-09 14:30] MED LIST changes: -HYDR-4870 PO; +HYDR25TA2 PO; +IPRA3AMP24 NEB
[2023-02-09 15:48] VITALS: BP 137/74
[2023-02-09] MEDS ORDERED: PredniSONE 20 MG TABLET PO ONE (16:30)
[2023-02-09] MEDS ORDERED: ALBUTEROL SULFATE 2.5 MG/0.5 ML NEB SOLUTION NEB ONE (16:30)
[2023-02-09] MEDS ORDERED: IPRATROPIUM BROMIDE 0.5 MG/2.5 ML NEB SOLUTION NEB ONE (16:30)
[2023-02-09 16:59] LABS: HEMATOCRIT 37.5 % (36-46); MEAN CORPUSCULAR HEMOGLOBIN 29.5 pg (26.0-34.0); MEAN CORPUSCULAR HGB CONC 32.1 G/dL (31.0-37.0); MEAN CORPUSCULAR VOLUME 92 fL (80-100); PLATELET COUNT (AUTO) 253 K/uL (150-450); RED BLOOD CELL COUNT(AUTO) 4.07 MIL/uL (4.00-5.20); RED CELL DISTRIBUTION WIDTH 15.6 % (11.5-14.5)
[2023-02-09 17:03] LABS: CREATININE 1.87 mg/dL (0.60-1.30); POTASSIUM 4.9 mmol/L (3.5-5.1)
[2023-02-09 17:09] LABS: ALBUMIN 2.5 g/dL (3.4-5.0); BILIRUBIN,TOTAL 0.3 mg/dL (0.1-1.0); TOTAL PROTEIN, SERUM 6.9 g/dL (6.4-8.2)
[2023-02-09 17:27] LABS: BAND NEUTROPHILS % (MANUAL) 0 % (0-5)
[2023-02-09 17:28] LABS: EOSINOPHILS % (MANUAL) 10 % (1-6); LYMPHOCYTES % (MANUAL) 20 % (22-44); MONOCYTES % (MANUAL) 6 % (2-9); SEGMENTED NEUTROPHILS % 64 % (40-70)
[2023-02-09] MEDS ORDERED: AZIT250T9 PO (18:04)
[2023-02-09] MEDS ORDERED: PRED-554 PO (18:04)
== END 2023-02-09 19:02 | disposition home or self-care (01) ==
LOC: EMS 14:31
DX: J44.9 Chronic obstructive pulmonary disease, unspecified (principal); I10 Essential (primary) hypertension; Z90.49 Acquired absence of other specified parts of digestive tract; Z90.710 Acquired absence of both cervix and uterus; Z88.8 Allergy status to other drugs, medicaments and biological substances; Z98.890 Other specified postprocedural states
CPT/HCPCS: 99284; 71045; 80053; 85025; 36415; 94640; J7512; J7613

== ENCOUNTER 2023-03-22 09:15 | Emergency (ER) | payer MEDICARE, MEDICAID ==
[~2023-03-22] VITALS: Ht 160 cm; Wt 56.8 kg
[~2023-03-22 09:15] MED LIST changes: +ACET-3385 PO; +ALBU2.5V39 NEB; -AUD NEB; +IBUP-1492 PO; +LIDO700A15 TP
[2023-03-22 09:21] VITALS: TEMP 98.2
[2023-03-22 10:43] VITALS: PULSE 54; RESP 22; O2SAT 91
[2023-03-22] MEDS ORDERED: IPRATROPIUM BROMIDE 0.5 MG/2.5 ML NEB SOLUTION NEB ONE (10:45)
[2023-03-22] MEDS ORDERED: ALBUTEROL SULFATE 2.5 MG/0.5 ML NEB SOLUTION NEB ONE (10:45)
[2023-03-22] MEDS ORDERED: PredniSONE 20 MG TABLET PO ONE (10:45)
[2023-03-22 14:15] VITALS: BP 166/72; PULSE 56; RESP 20
[2023-03-22] MEDS ORDERED: BUDESONIDE/FORMOTEROL FUMARATE 160-4.5 MCG/PUFF 10.2 GM INHALER IH ONE (14:15)
[2023-03-22] MEDS ORDERED: ALBUTEROL SULFATE HFA 90 MCG/PUFF 8 GM INHALER IH ONE (14:15)
== END 2023-03-22 14:54 | disposition home or self-care (01) ==
LOC: EMS 09:15
DX: J45.901 Unspecified asthma with (acute) exacerbation (principal); J44.9 Chronic obstructive pulmonary disease, unspecified; I10 Essential (primary) hypertension; B00.9 Herpesviral infection, unspecified; Z90.49 Acquired absence of other specified parts of digestive tract; Z90.710 Acquired absence of both cervix and uterus; Z98.890 Other specified postprocedural states; Z88.8 Allergy status to other drugs, medicaments and biological substances
CPT/HCPCS: 99283; 71045; 94640; J7512; J3535; J7613

== ENCOUNTER 2023-06-20 09:30 | Emergency (ER) | payer MEDICARE, MEDICAID ==
[~2023-06-20] VITALS: Ht 160 cm; Wt 57.3 kg
[~2023-06-20 09:30] MED LIST changes: -BUDE10.22 IH; -HYDR10TA31 PO; -IPRA3AMP24 NEB; -LIDO700A15 TP; -PRED-554 PO
[2023-06-20 09:34] VITALS: TEMP 97.7
[2023-06-20] MEDS ORDERED: PRED50TA2 PO (09:37)
[2023-06-20] MEDS ORDERED: NIFE-78 PO (09:37)
[2023-06-20] MEDS ORDERED: HYDR10TA31 PO (09:37)
[2023-06-20] MEDS ORDERED: ATOR40TA71 PO (09:37)
[2023-06-20] MEDS ORDERED: ALEN35TA41 PO (09:37)
[2023-06-20] MEDS ORDERED: ACYC400T20 PO (09:37)
[2023-06-20] MEDS ORDERED: RIZA10TA98 PO (09:37)
[2023-06-20 09:51] LABS: COVID AG,FIA SOURCE NASAL SWAB
[2023-06-20] MEDS ORDERED: ALBUTEROL SULFATE 2.5 MG/0.5 ML NEB SOLUTION NEB ONE (10:00)
[2023-06-20] MEDS ORDERED: MethylPREDNISolone SOD SUCC 125 MG/2 ML VIAL IVP ONE (10:00)
[2023-06-20] MEDS ORDERED: DOXYCYCLINE HYCLATE 100 MG TABLET PO ONE (10:00)
[2023-06-20] MEDS ORDERED: IPRATROPIUM BROMIDE 0.5 MG/2.5 ML NEB SOLUTION NEB ONE (10:00)
[2023-06-20 10:15] LABS: SARS-COV2 (COVID) ANTIGEN,FIA Negative (Negative)
[2023-06-20] MEDS ORDERED: PredniSONE 20 MG TABLET PO ONE (10:15)
[2023-06-20 10:17] LABS: INFLUENZA TYPE A NEGATIVE FOR TYPE A (NEGATIVE); INFLUENZA TYPE B NEGATIVE FOR TYPE B (NEGATIVE)
[2023-06-20 10:37] VITALS: PULSE 63; RESP 22; O2SAT 95
[2023-06-20 10:38] VITALS: PULSE 63; RESP 22; O2SAT 95
[2023-06-20 10:50] VITALS: PULSE 59; RESP 20; O2SAT 99
[2023-06-20] MEDS ORDERED: DOXY-354 PO (10:55)
[2023-06-20] MEDS ORDERED: GUAIFDM PO (10:55)
[2023-06-20] MEDS ORDERED: PRED-554 PO (10:55)
[2023-06-20 11:18] VITALS: BP 136/66; PULSE 64; RESP 18
== END 2023-06-20 11:18 | disposition home or self-care (01) ==
LOC: EMS 09:33
DX: J44.1 Chronic obstructive pulmonary disease with (acute) exacerbation (principal); I10 Essential (primary) hypertension; Z90.710 Acquired absence of both cervix and uterus; Z90.49 Acquired absence of other specified parts of digestive tract; Z98.890 Other specified postprocedural states; Z88.8 Allergy status to other drugs, medicaments and biological substances; Z20.822 Contact with and (suspected) exposure to COVID-19
CPT/HCPCS: 99285; 94060; 71045; 87426; 87804; 93005; 94640; J7512; J2930; J7613

== ENCOUNTER 2023-07-18 13:23 | Emergency (ER) | payer MEDICARE, MEDICAID ==
[~2023-07-18] VITALS: Ht 160 cm; Wt 56.8 kg
[~2023-07-18 13:23] MED LIST changes: -ACET-3385 PO; +ACYC400T20 PO; -ALBU2.5V39 NEB; +ALEN35TA41 PO; +ATOR40TA71 PO; -CETI-193 PO; +DOXY-354 PO; +GUAIFDM PO; +HYDR10TA31 PO; -IBUP-1492 PO; +NIFE-78 PO; -NIFE-79 PO; +PRED-554 PO; +PRED50TA2 PO; +RIZA10TA98 PO
[2023-07-18 13:56] VITALS: TEMP 98.6
[2023-07-18] MEDS ORDERED: KETOROLAC TROMETHAMINE 30 MG/ML VIAL IM ONE (15:45)
[2023-07-18 16:00] VITALS: BP 134/71; PULSE 71; RESP 17
== END 2023-07-18 17:51 | disposition home or self-care (01) ==
LOC: EMS 14:13
DX: G89.29 Other chronic pain (principal); M54.50 Low back pain, unspecified; J44.89 Other specified chronic obstructive pulmonary disease; I10 Essential (primary) hypertension; K21.9 Gastro-esophageal reflux disease without esophagitis; Z90.49 Acquired absence of other specified parts of digestive tract; Z90.710 Acquired absence of both cervix and uterus
CPT/HCPCS: 99283; 96372; J1885

== ENCOUNTER 2023-07-31 11:21 | Emergency (ER) | payer MEDICARE, MEDICAID ==
[~2023-07-31] VITALS: Ht 160 cm; Wt 56.8 kg
[~2023-07-31 11:21] MED LIST changes: -ACYC400T20 PO; -DOXY-354 PO; -GUAIFDM PO; -PRED-554 PO; -PRED50TA2 PO
[2023-07-31 11:32] VITALS: BP 122/75; PULSE 81; RESP 16; TEMP 99.5
[2023-07-31] MEDS ORDERED: BUDE10.26 IH (12:18)
[2023-07-31] MEDS ORDERED: ALBU18HF12 IH (12:19)
[2023-07-31] MEDS ORDERED: PRED-554 PO (12:20)
== END 2023-07-31 12:31 | disposition home or self-care (01) ==
LOC: EMS 11:21
DX: J44.9 Chronic obstructive pulmonary disease, unspecified (principal); Z76.0 Encounter for issue of repeat prescription; Z88.8 Allergy status to other drugs, medicaments and biological substances
CPT/HCPCS: 99281; Z7502

== ENCOUNTER 2023-08-14 09:17 | Emergency (ER) | payer MEDICARE, MEDICAID ==
[~2023-08-14] VITALS: Ht 162.6 cm; Wt 63.6 kg
[~2023-08-14 09:17] MED LIST changes: +BUDE10.26 IH; +PRED-554 PO
[2023-08-14 09:47] VITALS: TEMP 98
[2023-08-14 11:15] LABS: COVID AG,FIA SOURCE NASAL SWAB
[2023-08-14 11:33] LABS: SARS-COV2 (COVID) ANTIGEN,FIA Negative (Negative)
[2023-08-14 11:34] LABS: INFLUENZA TYPE A NEGATIVE FOR TYPE A (NEGATIVE); INFLUENZA TYPE B NEGATIVE FOR TYPE B (NEGATIVE)
[2023-08-14] MEDS ORDERED: BENZONATATE 100 MG CAPSULE PO ONE (12:30)
[2023-08-14] MEDS ORDERED: GuaiFENesin/D-METHORPHAN [SUGAR-FREE] 200-20MG/10 ML SYRUP UDCUP PO ONE (12:30)
[2023-08-14] MEDS ORDERED: ALBUTEROL SULFATE 2.5 MG/0.5 ML NEB SOLUTION NEB ONE (12:30)
[2023-08-14] MEDS ORDERED: IPRATROPIUM BROMIDE 0.5 MG/2.5 ML NEB SOLUTION NEB ONE (12:30)
[2023-08-14] MEDS ORDERED: PredniSONE 20 MG TABLET PO ONE (12:30)
[2023-08-14 12:54] VITALS: PULSE 76; RESP 18; O2SAT 93
[2023-08-14 12:56] VITALS: PULSE 76; RESP 18; O2SAT 93
[2023-08-14 12:59] LABS: BASOPHILS % (AUTO) 0.7 % (0.0-2.0); HEMATOCRIT 36.2 % (36-46); LYMPHOCYTES # (AUTO) 1.7 K/uL (1.0-4.8); LYMPHOCYTES % (AUTO) 15.8 % (22.0-44.0); MEAN CORPUSCULAR HEMOGLOBIN 30.5 pg (26.0-34.0); MEAN CORPUSCULAR HGB CONC 33.1 G/dL (31.0-37.0); MEAN CORPUSCULAR VOLUME 92 fL (80-100); MONOCYTES # (AUTO) 0.7 K/uL (0.1-1.0); MONOCYTES % (AUTO) 6.3 % (2.0-9.0); NEUTROPHILS # (AUTO) 6.1 K/uL (1.8-7.7); NEUTROPHILS % (AUTO) 57.6 % (40.0-70.0); PLATELET COUNT (AUTO) 183 K/uL (150-450); RED BLOOD CELL COUNT(AUTO) 3.93 MIL/uL (4.00-5.20); RED CELL DISTRIBUTION WIDTH 16.4 % (11.5-14.5); WHITE BLOOD COUNT (AUTO) 10.6 K/uL (4.5-11.0)
[2023-08-14 13:00] LABS: EOSINOPHILS % (AUTO) 19.6 % (1.0-6.0)
[2023-08-14 13:09] LABS: CALCIUM, TOTAL 8.8 mg/dL (8.8-10.5); CREATININE 1.32 mg/dL (0.60-1.30); POTASSIUM 4.1 mmol/L (3.5-5.1)
[2023-08-14 13:12] VITALS: PULSE 64; RESP 18; O2SAT 96
[2023-08-14 13:15] LABS: ALBUMIN 2.6 g/dL (3.4-5.0); BILIRUBIN,TOTAL 0.4 mg/dL (0.1-1.0); TOTAL PROTEIN, SERUM 6.5 g/dL (6.4-8.2)
[2023-08-14 13:16] LABS: TROPONIN I-HIGH SENSITIVITY 25 ng/L (<51)
[2023-08-14] MEDS ORDERED: PRED-554 PO (13:45)
[2023-08-14] MEDS ORDERED: ALBU2.5V39 NEB (13:45)
[2023-08-14] MEDS ORDERED: BUDE10.26 IH (13:45)
[2023-08-14] MEDS ORDERED: ALBU18HF12 IH (13:45)
[2023-08-14] MEDS ORDERED: GUAIFDM PO (13:45)
[2023-08-14] MEDS ORDERED: BENZ-227 PO (13:45)
[2023-08-14 14:21] VITALS: BP 144/86; PULSE 76; RESP 18
== END 2023-08-14 14:26 | disposition home or self-care (01) ==
LOC: EMS 09:17
DX: J44.1 Chronic obstructive pulmonary disease with (acute) exacerbation (principal); I10 Essential (primary) hypertension; Z90.710 Acquired absence of both cervix and uterus; Z90.49 Acquired absence of other specified parts of digestive tract; Z88.8 Allergy status to other drugs, medicaments and biological substances; Z20.822 Contact with and (suspected) exposure to COVID-19
CPT/HCPCS: 99284; 71045; 87426; 80053; 83880; 84484; 85025; 87804; 36415; 94640; J7512; J7613

== ENCOUNTER 2023-08-25 14:15 | Emergency (ER) | payer MEDICARE, MEDICAID ==
[~2023-08-25] VITALS: Ht 160 cm; Wt 57.3 kg
[~2023-08-25 14:15] MED LIST changes: +ALBU2.5V39 NEB; +BENZ-227 PO; +GUAIFDM PO
[2023-08-25 14:22] VITALS: TEMP 98.3
[2023-08-25] MEDS ORDERED: LOSA-381 PO (16:26)
[2023-08-25] MEDS ORDERED: ALBU18HF12 IH (16:26)
[2023-08-25] MEDS ORDERED: HYDR25TA2 PO (16:27)
[2023-08-25] MEDS ORDERED: BUDE10.26 IH (16:27)
[2023-08-25] MEDS ORDERED: ALBU2.5V39 NEB (16:28)
[2023-08-25 16:50] VITALS: BP 165/95; PULSE 71; RESP 16
== END 2023-08-25 16:55 | disposition home or self-care (01) ==
LOC: EMS 14:22
DX: J06.9 Acute upper respiratory infection, unspecified (principal); J44.9 Chronic obstructive pulmonary disease, unspecified; I10 Essential (primary) hypertension; Z90.49 Acquired absence of other specified parts of digestive tract; Z90.710 Acquired absence of both cervix and uterus; Z98.890 Other specified postprocedural states; Z88.8 Allergy status to other drugs, medicaments and biological substances; Z76.0 Encounter for issue of repeat prescription
CPT/HCPCS: 99281; Z7502

== ENCOUNTER 2023-09-07 15:09 | Emergency (ER) | payer MEDICARE, MEDICAID ==
[~2023-09-07] VITALS: Ht 160 cm; Wt 56.8 kg
[2023-09-07 15:14] VITALS: TEMP 97.9
[2023-09-07] MEDS ORDERED: IPRATROPIUM BROMIDE 0.5 MG/2.5 ML NEB SOLUTION NEB ONE (16:30)
[2023-09-07] MEDS ORDERED: PredniSONE 20 MG TABLET PO ONE (16:30)
[2023-09-07] MEDS ORDERED: ALBUTEROL SULFATE 2.5 MG/0.5 ML NEB SOLUTION NEB ONE (16:30)
[2023-09-07 16:48] VITALS: PULSE 88; RESP 24; O2SAT 93
[2023-09-07 16:57] VITALS: PULSE 70; RESP 26; O2SAT 100
[2023-09-07 16:59] LABS: COVID AG,FIA SOURCE NASAL SWAB
[2023-09-07 17:16] LABS: SARS-COV2 (COVID) ANTIGEN,FIA Negative (Negative)
[2023-09-07 17:19] LABS: INFLUENZA TYPE A NEGATIVE FOR TYPE A (NEGATIVE); INFLUENZA TYPE B NEGATIVE FOR TYPE B (NEGATIVE)
[2023-09-07 20:30] VITALS: BP 126/80; PULSE 74; RESP 17
[2023-09-07] MEDS ORDERED: DOXYCYCLINE HYCLATE 100 MG TABLET PO ONE (20:45)
[2023-09-07] MEDS ORDERED: PRED-554 PO (20:48)
[2023-09-07] MEDS ORDERED: DOXY-354 PO (20:48)
== END 2023-09-07 21:19 | disposition home or self-care (01) ==
LOC: EMS 15:10
DX: J44.9 Chronic obstructive pulmonary disease, unspecified (principal); I10 Essential (primary) hypertension; Z87.891 Personal history of nicotine dependence; Z90.49 Acquired absence of other specified parts of digestive tract; Z90.710 Acquired absence of both cervix and uterus; Z98.890 Other specified postprocedural states; Z88.8 Allergy status to other drugs, medicaments and biological substances; Z20.822 Contact with and (suspected) exposure to COVID-19
CPT/HCPCS: 99284; 71045; 87426; 87804; 94640; J7512; J7613

== ENCOUNTER 2023-10-21 23:49 | Emergency (ER) | payer MEDICARE, MEDICAID ==
[~2023-10-21] VITALS: Ht 160 cm; Wt 54.5 kg
[~2023-10-21 23:49] MED LIST changes: -BENZ-227 PO; +DOXY-354 PO; -GUAIFDM PO
[2023-10-22 01:23] LABS: INFLUENZA A-RTPCR,COMBO NEGATIVE (NEGATIVE); INFLUENZA B-RTPCR,COMBO NEGATIVE (NEGATIVE); RESPIRATORY SYNCYTIAL VRS-PCR NEGATIVE (NEGATIVE); SARS COVID19 RTPCR, COMBO NEGATIVE (NEGATIVE)
[2023-10-22 01:45] VITALS: BP 118/77; PULSE 69; RESP 18; TEMP 98.3
[2023-10-22] MEDS ORDERED: ACETAMINOPHEN 325 MG TABLET PO ONE (01:45)
[2023-10-22] MEDS ORDERED: BENZONATATE 100 MG CAPSULE PO ONE (01:45)
[2023-10-22] MEDS ORDERED: ACET-3385 PO (01:58)
[2023-10-22] MEDS ORDERED: BENZ-227 PO (01:58)
== END 2023-10-22 02:44 | disposition home or self-care (01) ==
LOC: EMS 23:53
DX: B34.9 Viral infection, unspecified (principal); J44.9 Chronic obstructive pulmonary disease, unspecified; I10 Essential (primary) hypertension; Z87.891 Personal history of nicotine dependence; Z90.49 Acquired absence of other specified parts of digestive tract; Z90.710 Acquired absence of both cervix and uterus; Z98.890 Other specified postprocedural states; Z88.8 Allergy status to other drugs, medicaments and biological substances; Z20.822 Contact with and (suspected) exposure to COVID-19
CPT/HCPCS: 99283; 0241U

== ENCOUNTER 2023-10-30 17:37 | Emergency (ER) | payer MEDICARE, MEDICAID ==
[~2023-10-30] VITALS: Ht 160 cm; Wt 57.3 kg
[~2023-10-30 17:37] MED LIST changes: +ACET-3385 PO; +BENZ-227 PO
[2023-10-30 17:45] VITALS: TEMP 98.4
[2023-10-30 17:55] LABS: COVID AG,FIA SOURCE NASAL SWAB
[2023-10-30 18:26] LABS: SARS-COV2 (COVID) ANTIGEN,FIA Negative (Negative)
[2023-10-30 18:37] LABS: INFLUENZA TYPE A NEGATIVE FOR TYPE A (NEGATIVE); INFLUENZA TYPE B NEGATIVE FOR TYPE B (NEGATIVE)
[2023-10-30] MEDS ORDERED: AZIT250T9 PO (20:27)
[2023-10-30] MEDS ORDERED: NIFE-46 PO (20:29)
[2023-10-30] MEDS ORDERED: FLUT16SP NASAL (20:31)
[2023-10-30] MEDS ORDERED: HYDR25TA2 PO (20:31)
[2023-10-30 20:46] VITALS: BP 118/78; PULSE 90; RESP 16
== END 2023-10-30 22:00 | disposition home or self-care (01) ==
LOC: EMS 20:51
DX: J40 Bronchitis, not specified as acute or chronic (principal); I10 Essential (primary) hypertension; J44.9 Chronic obstructive pulmonary disease, unspecified; Z87.891 Personal history of nicotine dependence; Z90.49 Acquired absence of other specified parts of digestive tract; Z90.710 Acquired absence of both cervix and uterus; Z98.890 Other specified postprocedural states; Z88.8 Allergy status to other drugs, medicaments and biological substances; Z20.822 Contact with and (suspected) exposure to COVID-19
CPT/HCPCS: 87804; 99283

== ENCOUNTER 2023-11-26 15:54 | Emergency (ER) | payer MEDICARE, MEDICAID ==
[~2023-11-26] VITALS: Ht 160 cm; Wt 55.0 kg
[~2023-11-26 15:54] MED LIST changes: +FLUT16SP NASAL; +NIFE-46 PO
[2023-11-26 16:45] VITALS: TEMP 98.1
[2023-11-26] MEDS: ALBUTEROL SULFATE 2.5 MG/0.5 ML 5 ML NEB SOLUTION NEB ONE (16:49)
[2023-11-26] MEDS: PredniSONE 20 MG TABLET PO ONE (16:49)
[2023-11-26] MEDS: IPRATROPIUM BROMIDE 0.5 MG/2.5 ML NEB SOLUTION NEB ONE (16:49)
[2023-11-26 16:57] VITALS: PULSE 107; RESP 22; O2SAT 100
[2023-11-26 16:59] VITALS: PULSE 107; RESP 22; O2SAT 100
[2023-11-26] MEDS ORDERED: PRED-554 PO (18:02)
[2023-11-26] MEDS: ACETAMINOPHEN 325 MG TABLET PO ONE (18:08)
[2023-11-26 18:10] VITALS: BP 131/88; PULSE 92; RESP 18
== END 2023-11-26 18:21 | disposition home or self-care (01) ==
LOC: EMS 15:55
DX: J44.1 Chronic obstructive pulmonary disease with (acute) exacerbation (principal); F41.9 Anxiety disorder, unspecified; M19.90 Unspecified osteoarthritis, unspecified site; I10 Essential (primary) hypertension; G43.909 Migraine, unspecified, not intractable, without status migrainosus; G89.29 Other chronic pain; M54.9 Dorsalgia, unspecified; Z87.891 Personal history of nicotine dependence; Z90.49 Acquired absence of other specified parts of digestive tract; Z90.710 Acquired absence of both cervix and uterus; Z88.8 Allergy status to other drugs, medicaments and biological substances
CPT/HCPCS: 99285; 71045; 94644; J7512; Q9967

== ENCOUNTER 2023-12-15 12:00 | Emergency (ER) | payer MEDICARE, MEDICAID ==
[~2023-12-15] VITALS: Ht 160 cm; Wt 59.1 kg
[~2023-12-15 12:00] MED LIST changes: -ALBU2.5V39 NEB; -ALEN35TA41 PO; -ATOR40TA71 PO; +BACL10TA PO; -BENZ-227 PO; +BENZ100C68 PO; -BUDE10.26 IH; -DOXY-354 PO; +FLUT1BLS3 IH; -HYDR10TA31 PO; -HYDR25TA2 PO; +LIDO700A15 TP; -LOSA-381 PO; +LOSA-382 PO; +NIFE-129 PO; -NIFE-46 PO; -NIFE-78 PO; -PRED-554 PO; -RIZA10TA98 PO
[2023-12-15 12:09] VITALS: TEMP 98.1
[2023-12-15 12:40] LABS: COVID AG,FIA SOURCE NASAL SWAB
[2023-12-15] MEDS: LORazepam 1 MG TABLET PO ONE (12:44)
[2023-12-15 13:18] LABS: SARS-COV2 (COVID) ANTIGEN,FIA Negative (Negative)
[2023-12-15 13:19] LABS: INFLUENZA TYPE A NEGATIVE FOR TYPE A (NEGATIVE); INFLUENZA TYPE B NEGATIVE FOR TYPE B (NEGATIVE)
[2023-12-15 14:02] VITALS: BP 158/99; PULSE 68; RESP 18
[2023-12-15] MEDS ORDERED: HYDR-3831 PO (14:14)
[2024-01-24] MEDS ORDERED: MELA5TAB40 PO (19:24)
[2024-01-24] MEDS ORDERED: DULO-114 PO (19:24)
[2024-01-24] MEDS ORDERED: PREG75 PO (19:24)
[2024-01-24] MEDS ORDERED: OMEG-135 PO (19:24)
[2024-01-24] MEDS ORDERED: NALT50TA33 PO (19:24)
== END 2023-12-15 14:45 | disposition home or self-care (01) ==
LOC: EMS 12:06
DX: F41.9 Anxiety disorder, unspecified (principal); M19.90 Unspecified osteoarthritis, unspecified site; Z87.891 Personal history of nicotine dependence; Z90.49 Acquired absence of other specified parts of digestive tract; Z90.710 Acquired absence of both cervix and uterus; Z20.822 Contact with and (suspected) exposure to COVID-19; Z88.8 Allergy status to other drugs, medicaments and biological substances
CPT/HCPCS: 87804; 99283

== ENCOUNTER 2024-01-31 15:55 | Emergency (ER) | payer MEDICARE, MEDICAID ==
[2024-01-30 19:55] VITALS: PULSE 73; RESP 24; O2SAT 92
[~2024-01-31] VITALS: Ht 157.5 cm; Wt 65.9 kg
[~2024-01-31 15:55] MED LIST changes: -ACET-3385 PO; -ALBU18HF12 IH; -BACL10TA PO; -BENZ100C68 PO; +DULO-114 PO; -FLUT16SP NASAL; -LIDO700A15 TP; +MELA5TAB40 PO; +NALT50TA33 PO; -NIFE-129 PO; +OMEG-135 PO; +PREG75 PO
[2024-01-31 16:08] VITALS: TEMP 99
[2024-01-31 16:54] LABS: COVID AG,FIA SOURCE NASAL SWAB
[2024-01-31 17:06] LABS: SARS-COV2 (COVID) ANTIGEN,FIA Negative (Negative)
[2024-01-31 17:07] LABS: INFLUENZA TYPE A NEGATIVE FOR TYPE A (NEGATIVE); INFLUENZA TYPE B NEGATIVE FOR TYPE B (NEGATIVE)
[2024-01-31 17:11] LABS: BASOPHILS % (AUTO) 0.6 % (0.0-2.0); CALCIUM, TOTAL 8.5 mg/dL (8.8-10.5); CREATININE 1.97 mg/dL (0.60-1.30); HEMATOCRIT 36.1 % (36-46); HEMOGLOBIN 11.7 g/dL (12.0-16.0); LYMPHOCYTES # (AUTO) 0.8 K/uL (1.0-4.8); LYMPHOCYTES % (AUTO) 8.2 % (22.0-44.0); MEAN CORPUSCULAR HEMOGLOBIN 30.3 pg (26.0-34.0); MEAN CORPUSCULAR HGB CONC 32.5 G/dL (31.0-37.0); MEAN CORPUSCULAR VOLUME 93 fL (80-100); MONOCYTES # (AUTO) 0.7 K/uL (0.1-1.0); NEUTROPHILS # (AUTO) 5.2 K/uL (1.8-7.7); NEUTROPHILS % (AUTO) 51.4 % (40.0-70.0); PLATELET COUNT (AUTO) 282 K/uL (150-450); POTASSIUM 4.7 mmol/L (3.5-5.1); RED BLOOD CELL COUNT(AUTO) 3.88 MIL/uL (4.00-5.20); RED CELL DISTRIBUTION WIDTH 14.9 % (11.5-14.5); WHITE BLOOD COUNT (AUTO) 10.2 K/uL (4.5-11.0)
[2024-01-31 17:12] LABS: EOSINOPHILS % (AUTO) 32.8 % (1.0-6.0)
[2024-01-31 17:17] LABS: ALBUMIN 2.4 g/dL (3.4-5.0); BILIRUBIN,TOTAL 0.2 mg/dL (0.1-1.0); TOTAL PROTEIN, SERUM 6.4 g/dL (6.4-8.2); TROPONIN I-HIGH SENSITIVITY 16 ng/L (<51)
[2024-01-31] MEDS: MethylPREDNISolone SOD SUCC 125 MG/2 ML VIAL IVP ONE (19:26)
[2024-01-31] MEDS: ALBUTEROL SULFATE 2.5 MG/0.5 ML NEB SOLUTION NEB ONE ×2 (19:38→20:31)
[2024-01-31] MEDS: IPRATROPIUM BROMIDE 0.5 MG/2.5 ML NEB SOLUTION NEB ONE ×2 (19:38→20:31)
[2024-01-31 19:40] VITALS: PULSE 73; PULSE 81; RESP 24; O2SAT 92; O2SAT 99
[2024-01-31 20:35] VITALS: PULSE 67; RESP 20; O2SAT 95
[2024-01-31 20:50] VITALS: PULSE 68; RESP 20; O2SAT 99
[2024-01-31] MEDS: HydrALAZINE HCL 20 MG/ML VIAL IVP ONE ×2 (21:06→21:50)
[2024-01-31 21:27] VITALS: BP 156/91; PULSE 70; RESP 18
== END 2024-01-31 23:40 | disposition short-term general hospital (02) ==
LOC: EMS 15:58
DX: J44.1 Chronic obstructive pulmonary disease with (acute) exacerbation (principal); I10 Essential (primary) hypertension; N17.9 Acute kidney failure, unspecified; D64.9 Anemia, unspecified; J45.909 Unspecified asthma, uncomplicated; K21.9 Gastro-esophageal reflux disease without esophagitis; G43.909 Migraine, unspecified, not intractable, without status migrainosus; J18.9 Pneumonia, unspecified organism; J32.9 Chronic sinusitis, unspecified; Z87.891 Personal history of nicotine dependence; Z90.49 Acquired absence of other specified parts of digestive tract; Z90.710 Acquired absence of both cervix and uterus; Z20.822 Contact with and (suspected) exposure to COVID-19
CPT/HCPCS: 99291; 96374; 71045; 96375; 87426; 80053; 83880; 84484; 85025; 87804; 36415; 94640; 93005; J0360; J2919; J7613

== ENCOUNTER 2024-02-09 20:48 | Emergency (ER) | payer MEDICARE, MEDICAID ==
[~2024-02-09] VITALS: Ht 160 cm; Wt 54.5 kg
[2024-02-09 21:51] LABS: BASOPHILS % (AUTO) 0.7 % (0.0-2.0); EOSINOPHILS % (AUTO) 14.5 % (1.0-6.0); HEMATOCRIT 35.7 % (36-46); HEMOGLOBIN 11.7 g/dL (12.0-16.0); LYMPHOCYTES # (AUTO) 2.7 K/uL (1.0-4.8); MEAN CORPUSCULAR HEMOGLOBIN 30.4 pg (26.0-34.0); MEAN CORPUSCULAR HGB CONC 32.8 G/dL (31.0-37.0); MEAN CORPUSCULAR VOLUME 93 fL (80-100); MONOCYTES # (AUTO) 1.3 K/uL (0.1-1.0); MONOCYTES % (AUTO) 8.2 % (2.0-9.0); NEUTROPHILS # (AUTO) 9.4 K/uL (1.8-7.7); NEUTROPHILS % (AUTO) 59.6 % (40.0-70.0); PLATELET COUNT (AUTO) 289 K/uL (150-450); RED BLOOD CELL COUNT(AUTO) 3.86 MIL/uL (4.00-5.20); RED CELL DISTRIBUTION WIDTH 15.6 % (11.5-14.5); WHITE BLOOD COUNT (AUTO) 15.7 K/uL (4.5-11.0)
[2024-02-09 22:02] LABS: CALCIUM, TOTAL 8.1 mg/dL (8.8-10.5); CREATININE 1.14 mg/dL (0.60-1.30); POTASSIUM 3.3 mmol/L (3.5-5.1)
[2024-02-10 00:55] LABS: INFLUENZA A-RTPCR,COMBO NEGATIVE (NEGATIVE); INFLUENZA B-RTPCR,COMBO NEGATIVE (NEGATIVE); RESPIRATORY SYNCYTIAL VRS-PCR NEGATIVE (NEGATIVE); SARS COVID19 RTPCR, COMBO NEGATIVE (NEGATIVE)
[2024-02-10 01:02] LABS: TROPONIN I-HIGH SENSITIVITY 20 ng/L (<51)
[2024-02-10] MEDS: LEVOFLOXACIN 250 MG TABLET PO ONE (01:38)
[2024-02-10] MEDS: DEXAMETHASONE SOD PHOS 4 MG/ML 5 ML VIAL IM ONE (01:38)
[2024-02-10] MEDS ORDERED: LEVO-72 PO (01:40)
[2024-02-10] MEDS ORDERED: DEXA4 PO (01:40)
[2024-02-10] MEDS ORDERED: ALBU18HF12 IH (01:40)
[2024-02-10] MEDS: ALBUTEROL SULFATE 2.5 MG/0.5 ML NEB SOLUTION NEB ONE (02:55)
[2024-02-10] MEDS: IPRATROPIUM BROMIDE 0.5 MG/2.5 ML NEB SOLUTION NEB ONE (02:56)
[2024-02-10 03:12] VITALS: PULSE 60; RESP 17; O2SAT 94
[2024-02-10 03:13] VITALS: PULSE 61; RESP 18; O2SAT 94
[2024-02-10 03:27] VITALS: BP 143/89; PULSE 90; RESP 18; TEMP 97.3
== END 2024-02-10 04:00 | disposition home or self-care (01) ==
LOC: EMS 20:48
DX: J44.1 Chronic obstructive pulmonary disease with (acute) exacerbation (principal); F41.9 Anxiety disorder, unspecified; M19.90 Unspecified osteoarthritis, unspecified site; I10 Essential (primary) hypertension; G43.909 Migraine, unspecified, not intractable, without status migrainosus; Z87.891 Personal history of nicotine dependence; Z90.49 Acquired absence of other specified parts of digestive tract; Z90.710 Acquired absence of both cervix and uterus; Z98.890 Other specified postprocedural states; Z20.822 Contact with and (suspected) exposure to COVID-19
CPT/HCPCS: 99285; 0241U; 71045; 80048; 83880; 84484; 85025; 36415; 93005; 94060; 94640; 96372; J1100; J7613

== ENCOUNTER 2024-02-20 13:34 | Emergency (ER) | payer MEDICARE, MEDICAID ==
[~2024-02-20] VITALS: Ht 162.6 cm; Wt 52.3 kg
[~2024-02-20 13:34] MED LIST changes: +ALBU18HF12 IH; +DEXA4 PO; +LEVO-72 PO
[2024-02-20 13:38] VITALS: TEMP 98
[2024-02-20] MEDS ORDERED: AMLO10TA55 PO (13:41)
[2024-02-20] MEDS ORDERED: ATOR20TA PO (13:41)
[2024-02-20] MEDS ORDERED: BENZ200C53 PO (13:41)
[2024-02-20] MEDS: KETOROLAC TROMETHAMINE 30 MG/ML VIAL IM ONE (15:22)
[2024-02-20] MEDS: LIDOCAINE 5% TRANSDERMAL PATCH TD ONE (15:22)
[2024-02-20] MEDS ORDERED: IBUP-1492 PO (16:29)
[2024-02-20 16:41] VITALS: BP 131/68; PULSE 67; RESP 18
== END 2024-02-20 17:02 | disposition home or self-care (01) ==
LOC: EMS 13:34
DX: G89.29 Other chronic pain (principal); M54.50 Low back pain, unspecified; J44.9 Chronic obstructive pulmonary disease, unspecified; I10 Essential (primary) hypertension; K21.9 Gastro-esophageal reflux disease without esophagitis; Z88.8 Allergy status to other drugs, medicaments and biological substances
CPT/HCPCS: 99283; 96372; J1885

== ENCOUNTER 2024-03-01 17:50 | Emergency (ER) | payer MEDICARE, MEDICAID ==
[~2024-03-01 17:50] MED LIST changes: +AMLO10TA55 PO; +ATOR20TA PO; +BENZ200C53 PO; -DEXA4 PO; +IBUP-1492 PO; -LEVO-72 PO; -MELA5TAB40 PO; -NALT50TA33 PO; -OMEG-135 PO
[2024-03-01] MEDS ORDERED: 0.9% SODIUM CHLORIDE 10 ML SYRINGE IVP PRN (19:00)
[2024-03-01 19:35] LABS: ANION GAP 7 mmol/L (8-16); CALCIUM, TOTAL 8.7 mg/dL (8.8-10.5); CARBON DIOXIDE 27 mmol/L (22-29); CHLORIDE 102 mmol/L (98-107); CREATININE 2.17 mg/dL (0.60-1.30); GLOMERULAR FILTR. RATE CALC 28 mL/min (>60); GLUCOSE,RANDOM 86 mg/dL (70-110); POTASSIUM 4.4 mmol/L (3.5-5.1); SODIUM SERUM 136 mmol/L (136-145); UREA NITROGEN, BLOOD 22 mg/dL (7-18)
[2024-03-01 19:40] VITALS: BP 162/90; PULSE 64; RESP 22; TEMP 98.5
[2024-03-01 19:41] LABS: B-TYPE NATRIURETIC PEPTIDE 88 pg/mL (0-100)
[2024-03-01 19:42] LABS: ALANINE AMINOTRANSFERASE 31 U/L (12-78); ALBUMIN 2.1 g/dL (3.4-5.0); ALKALINE PHOSPHATASE 98 U/L (46-116); ASPARTATE AMINOTRANSFERASE 43 U/L (15-37); BASOPHILS % (AUTO) 0.2 % (0.0-2.0); BILIRUBIN,TOTAL 0.2 mg/dL (0.1-1.0); HEMATOCRIT 34.2 % (36-46); HEMOGLOBIN 11.1 g/dL (12.0-16.0); LYMPHOCYTES # (AUTO) 2.1 K/uL (1.0-4.8); LYMPHOCYTES % (AUTO) 21.1 % (22.0-44.0); MEAN CORPUSCULAR HEMOGLOBIN 30.1 pg (26.0-34.0); MEAN CORPUSCULAR HGB CONC 32.5 G/dL (31.0-37.0); MEAN CORPUSCULAR VOLUME 93 fL (80-100); MONOCYTES # (AUTO) 0.7 K/uL (0.1-1.0); MONOCYTES % (AUTO) 7.3 % (2.0-9.0); NEUTROPHILS # (AUTO) 5.5 K/uL (1.8-7.7); NEUTROPHILS % (AUTO) 54.4 % (40.0-70.0); PLATELET COUNT (AUTO) 288 K/uL (150-450); RED BLOOD CELL COUNT(AUTO) 3.69 MIL/uL (4.00-5.20); RED CELL DISTRIBUTION WIDTH 15.1 % (11.5-14.5); TOTAL PROTEIN, SERUM 5.8 g/dL (6.4-8.2); TROPONIN I-HIGH SENSITIVITY 29 ng/L (<51)
[2024-03-01 20:56] LABS: COVID AG,FIA SOURCE NASAL SWAB
[2024-03-01 21:18] LABS: INFLUENZA TYPE A NEGATIVE FOR TYPE A (NEGATIVE); INFLUENZA TYPE B NEGATIVE FOR TYPE B (NEGATIVE); SARS-COV2 (COVID) ANTIGEN,FIA Negative (Negative)
[2024-03-01] MEDS ORDERED: LOSA-382 PO (21:42)
[2024-03-01] MEDS ORDERED: BENZ200C53 PO (21:42)
[2024-03-01] MEDS ORDERED: PREG75 PO (21:42)
[2024-03-01] MEDS ORDERED: DULO-114 PO (21:42)
[2024-03-01] MEDS ORDERED: AMLO10TA55 PO (21:42)
[2024-03-01] MEDS: BENZONATATE 100 MG CAPSULE PO ONE (21:47)
[2024-03-01] MEDS: AmLODIPine BESYLATE 5 MG TABLET PO ONE (21:47)
[2024-03-01] MEDS: ACETAMINOPHEN 500 MG TABLET PO ONE (21:47)
[2024-03-01] MEDS: ALBUTEROL SULFATE HFA 90 MCG/PUFF 8 GM INHALER IH ONE (21:49)
== END 2024-03-01 23:13 | disposition home or self-care (01) ==
LOC: EMS 17:50
DX: J44.1 Chronic obstructive pulmonary disease with (acute) exacerbation (principal); F32.9 Major depressive disorder, single episode, unspecified; R09.81 Nasal congestion; R05.9 Cough, unspecified; K21.9 Gastro-esophageal reflux disease without esophagitis; I10 Essential (primary) hypertension; Z88.8 Allergy status to other drugs, medicaments and biological substances; Z20.822 Contact with and (suspected) exposure to COVID-19
CPT/HCPCS: 99285; 71045; 87426; 80048; 80076; 83605; 83880; 84484; 85025; 87040; 87804; 36415; 93005; 84145; J3535